=== PATIENT | male | born 1990 ===

== ENCOUNTER 2022-04-01 14:07 | Day surgery (SDC) | payer OTHER ==
[~2022-04-01] VITALS: Ht 182.9 cm; Wt 98.0 kg
[2022-04-01] MEDS ORDERED: PERCOCET 325 MG1 TA2 PO (14:39)
[2022-04-01] MEDS ORDERED: ZOFRAN 4MG T4 MG/TAB PO (14:39)
[2022-04-01] MEDS ORDERED: NAPROSYN500 MG PO (14:39)
[2022-04-01] MEDS ORDERED: FLOMAX 0.40.4 MG/CAP PO (14:39)
--- NOTE | 2022-04-01 14:45 | NUR ---
The patient was given a PRN dose of Dilaudid 0.5 mg IV as ordered by JACQUELINE Morales. The patient reports the pain to be located his his right flank and radiates down to his tesicles. Will continue to monitor the patient's pain.
[2022-04-01 14:53] VITALS: BP 116/72; PULSE 65; TEMP 97.7
--- NOTE | 2022-04-01 15:15 | NUR ---
The patient continues to report intermittent intense pain in his right flank that radiates down to his testicles. The patient was given a repeat dose of Dilaudid 0.5 mg IV per CRNA. Andrew
--- NOTE | 2022-04-01 16:00 | NUR ---
The patient continues to report increased pain in the right flank. The patient was given extra pillows per his request as he is going to turn on his left side and "try and get some sleep". Call light is within reach. Denies any further needs.
--- NOTE | 2022-04-01 16:31 | NUR ---
The patient appears to be resting comfortably on his left side at this time. The patient has a pillow between his legs to help with the discomfort. The patient states the pain is "still there" but denies wanting anything further for pain medicaiton at this time. Call light is within reach. Denies any further needs.
[2022-04-01 21:05] VITALS: BP 115/65; PULSE 71; TEMP 98
[2022-04-01 21:20] VITALS: BP 122/71; PULSE 69
[2022-04-01 21:35] VITALS: BP 123/75; PULSE 82
[2022-04-01 21:50] VITALS: BP 110/67; PULSE 67
[2022-04-01 22:20] VITALS: BP 115/70; PULSE 62
--- NOTE | 2022-04-01 22:47 | NUR ---
PATIENT UP TO ROOM 347. ALERT AND ORIENTED. AMBULATED TO BED WITH STANDBY ASSIST. TOLERATED PO FOOD AND FLUIDS. AMBULATED TO BATHROOM AND VOIDED CLEAR YELLOW URINE. POST OP VSS. DISCHARGE TEACHING DONE AND PAPERWORK SIGNED. IV TO L HAND DC'D, BANDAID APPLIED. PATIENT DRESSED SELF AND WAS ESCORTED OUT VIA WHEELCHAIR BY NURSING STAFF TO HOME WITH FAMILY.
== END 2022-04-01 22:45 | disposition home or self-care (01) ==
LOC: EDSEX 14:07 → SDCO 14:07 → SURG 21:05 → SDCO 22:45
DX: N20.1 Calculus of ureter (principal)
CPT/HCPCS: OP; C1769; C2617; J0690; J1100; J1170; J1885; J2405; J2704; J3010; J7030; Q9967